=== PATIENT | female | born 1955 | race Caucasian/White ===

== ENCOUNTER 2016-07-02 21:28 | Emergency (ER) | payer OTHER ==
[2016-07-02 21:31] VITALS: BP 135/81; PULSE 81; RESP 16; O2SAT 100
--- NOTE | 2016-07-02 21:39 | ED.REPORT ---
HPI-General Illness Date of Service Jul 02, 2016 ED Provider: Bentley Braden MD A 61 year old female with a history of substance abuse presents to the ED complaining of withdrawal. She last used heroin 4 days ago, but has not used in the last 2 days, denying any opiate use in the last few days. She smokes heroin , but does not inject. She did use meth 1 week ago. She denies any nausea or vomiting. She has been on Suboxone before in the past, taking 16 mg per day, receiving treatment from Dr. Mac at that time. Nursing Notes Stated Complaint: SUBOXONE Chief Complaint: General Complaint Nursing Notes Reviewed: Yes Allergies: Coded Allergies: No Known Allergies (Unverified , 07/02/16) Scheduled Buprenorphine/Naloxone 8-2 mg (Buprenorphine/Naloxone 8-2 mg) 1 Each Tab.subl 1 TABLET SL BID General Time Seen by MD: 21:38 Chief Complaint Other (Withdrawal) Hx Obtained From: Patient Arrived By: Walk-in Sudden in Onset?: No Onset Occurred: Onset unknown (last used heroin 4 days ago) Symptom Duration: Since onset Recent Healthcare: No recent doctor visit Similar Sx Previous: No Past Medical History Past Medical History Notes: Patient has no PCP. Smoking History Current Every Day Smoker (5 per day) Social History Patient lives in [place] with her sister who is clean and sober and knows that the patient uses drugs. The patient denies being in trouble with the law. Patient uses heroin but denies THC use. She denies using benzodiazepine. She denies using any muscle relaxants. She denies using sleeping pills. Alcohol Use: Denies alcohol use Drug Use: Meth (last used 1 week ago.) Ambulatory Status Independent Review of Systems Patient reports withdrawal. Full Review of Systems GI: Denies: Nausea, Vomiting Complete sys rev & neg: except as marked. Physical Exam Vital Signs Vital Signs Date Time Temp Pulse Resp B/P Pulse Ox O2 Delivery O2 Flow Rate FiO2 07/02/16 23:32 36.2 81 16 135/81 100 Room Air 07/02/16 21:31 36.2 81 16 135/81 100 Room Air Initial VS: Reviewed, Vital signs normal General/Constitutional: Awake, Alert Patient seems to be in mild distress. She seems to be a bit anxious and agitated. She appears adequately hydrated. Head / Eyes: Atraumatic, Normocephalic, PERRL ENT: Atraumatic, Airway patent Respiratory / Chest: Breath sounds NL, Breath sounds = bilat, No respiratory distress Cardiovascular: Heart rate NL, Regular rhythm, Heart sounds NL, No gallop, No murmurs, No rubs Abdomen: No guarding, No rebound Upper Extremities Upper Extremity / MS: No swelling, No edema Lower Extremity / Pelvis / MS: No swelling, No edema Skin: Warm, Dry No diaphoresis. No injections sites visible. Neurologic: Oriented X3, Speech NL Interpretation & Diagnostics Interpretation & Diagnostics: Bedside presumptive urine drug screen is negative for all components. Re-Eval/Medical Decision Med Decision/Clinical Course 61-year-old female who presents with heroin withdrawal. She has not used in 3 days. She desires to detox and go on Suboxone maintenance. She was given her first dose of Subutex here and a prescription for 5 days worth of Suboxone. She was given the priority access number to get a follow-up appointment at [facility]. Source of Hx: Old records Time of Eval: 21:53 Re-Evaluation/Progress Note: Explained resources for detox treatment. Time of Eval: 23:20 Re-Evaluation/Progress Note: Rechecked patient who is feeling better, is smiling, and is no longer pacing. Explained plan for discharge. Counseled Regarding: Diagnosis, Lab results, Need for follow-up, When/why to return to ED Discharge & Departure Primary Impression: Opioid dependence with withdrawal Disposition: Home Discharge Condition All VS Reviewed: Yes Condition: Improved Patient Instructions: Buprenorphine/Naloxone (By mouth) Additional Instructions: You were given buprenorphine 8 mg in the emergency room. Continue buprenorphine /naloxone (Suboxone) 8/2 tabs, one dissolved orally twice daily, #10 prescribed. Contact the priority access appointment line at [facility] at [phone] to schedule an appointment to see me as soon as possible. Do not use any opiates. Referrals: [facility] Attestation Portions of this note were transcribed by Ryan Marlow. I, Dr. Braden personally performed the history, physical exam and medical decision-making; I reviewed and confirmed the accuracy of the information in the transcribed note. Signed by: Renny James, 07/02/2016, 1364. copies to: Bentley Mac MD Jul 02, 2016 21:39 Ryan Marlow Jul 02, 2016 21:57
[2016-07-02] MEDS ORDERED: Buprenorphine 2 mg SL Tablet SL ONE (22:05)
[2016-07-02] MEDS ORDERED: BUPR1TAB36 SL (23:25)
[2016-07-02 23:32] VITALS: BP 135/81; PULSE 81; RESP 16; O2SAT 100
== END 2016-07-02 23:33 | disposition home or self-care (01) ==
LOC: SED 21:28
DX: F11.23 Opioid dependence with withdrawal (principal); F17.200 Nicotine dependence, unspecified, uncomplicated